=== PATIENT | female | born 1990 | race African-American/Black ===

== ENCOUNTER 2019-01-26 17:48 | Emergency (ER) | payer OTHER ==
[~2019-01-26] VITALS: Ht 165.1 cm; Wt 113.4 kg
[2019-01-26 17:54] VITALS: BP 160/94
--- NOTE | 2019-01-26 18:00 | PHYS DOC ---
Past Medical History Past Medical History: No Pertinent History Past Surgical History: Other Additional Past Surgical Histo: L LEG Alcohol Use: None Drug Use: None Adult General Chief Complaint Chief Complaint: BACK PAIN - NO INJURY [facility] HPI Patient is a 28 year old female who presents with Left lower back pain that radiates down back of left leg x 1 week. Ambulatory with steady gait. 8/10 pain. Review of Systems Review of Systems Constitutional: Denies fever or chills [] Eyes: Denies change in visual acuity, redness, or eye pain [] HENT: Denies nasal congestion or sore throat [] Respiratory: Denies cough or shortness of breath [] Cardiovascular: No additional information not addressed in HPI [] GI: Denies abdominal pain, nausea, vomiting, bloody stools or diarrhea [] : Denies dysuria or hematuria [] Musculoskeletal: left lower back pain that radiates down back of the leg. or joint pain [] Integument: Denies rash or skin lesions [] Neurologic: Denies headache, focal weakness or sensory changes [] Endocrine: Denies polyuria or polydipsia [] All other systems were reviewed and found to be within normal limits, except as documented in this note. Allergies Allergies Allergies Coded Allergies Type Severity Reaction Last Updated Verified No Known Drug Allergies 11/29/15 No Physical Exam Physical Exam Constitutional: Well developed, well nourished, no acute distress, non-toxic appearance. [] HENT: Normocephalic, atraumatic, bilateral external ears normal, oropharynx moist, no oral exudates, nose normal. [] Eyes: PERRLA, EOMI, conjunctiva normal, no discharge. [] Neck: Normal range of motion, no tenderness, supple, no stridor. [] Cardiovascular:Heart rate regular rhythm, no murmur [] Lungs & Thorax: Bilateral breath sounds clear to auscultation [] Abdomen: Bowel sounds normal, soft, no tenderness, no masses, no pulsatile masses. [] Skin: Warm, dry, no erythema, no rash. [] Back: No tenderness, no CVA tenderness. [] Extremities: No tenderness, no cyanosis, no clubbing, ROM intact, no edema. [] Neurologic: Alert and oriented X 3, normal motor function, normal sensory function, no focal deficits noted. [] Psychologic: Affect normal, judgement normal, mood normal. Normal Physical Exam[] EKG EKG [] Radiology/Procedures Radiology/Procedures [] Course & Med Decision Making Course & Med Decision Making Patient is a 28 year old female who presents with Left lower back pain that radiates down back of left leg x 1 week. Ambulatory with steady gait. 8/10 pain. Alert and oriented. no extremity swelling. Denies numbness or tingling. Pedal pulses present. Patient states she does a lot of lifting and standing at her job for 12 hours at a time. No tenderness to the back or leg with palpation. No calf tenderness. Nothing make the pain better. Movement makes pain worse. Patient has been using Advil and Tylenol for pain. Patient is diagnosed with Sciatica. Patient to follow up with primary care physician as soon as possible. Dragon Disclaimer Dragon Disclaimer This electronic medical record was generated, in whole or in part, using a voice recognition dictation system. Departure Departure Impression: Primary Impression: Sciatica Disposition: HOME, SELF-CARE Condition: STABLE Referrals: NO PCP (PCP) Patient Instructions: Sciatica Additional Instructions: Take medication as prescribed. Follow up with primary care as soon as possible. Try a heating pad or Aspercreme with lidocaine. Continue taking Ibuprofen. Scripts Hydrocodone/Apap 5-325 (NORCO 5-325 TABLET) 1 Each Tablet 1 TAB PO PRN Q6HRS PRN for PAIN, #10 TAB 0 Refills Prov: DENAE ACUNA APRN 01/26/19 Methylprednisolone (MEDROL) 4 Mg Tab.ds.pk 1 PKG PO UD, #1 PKG Prov: DENAE ACUNA APRN 01/26/19 Problem Qualifiers Primary Impression: Sciatica Laterality: left Qualified Codes: M54.32 - Sciatica, left side DENAE ACUNA TALENT ACQUISITION DIRECTOR Jan 26, 2019 18:00
[2019-01-26] MEDS ORDERED: HYDR-3164 PO (18:10)
[2019-01-26] MEDS ORDERED: METH4TAB2 PO (18:10)
[2019-01-27] MEDS ORDERED: NAPR-514 PO (19:48)
[2019-01-27] MEDS ORDERED: CYCL10TA2 PO (19:48)
== END 2019-01-26 18:34 | disposition home or self-care (01) ==
LOC: ER 17:48
DX: M54.42 Lumbago with sciatica, left side (principal)
CPT/HCPCS: 99283

== ENCOUNTER 2019-08-26 18:37 | Emergency (ER) | payer SELFPAY ==
[~2019-08-26] VITALS: Ht 165.1 cm; Wt 100.0 kg
[~2019-08-26 18:37] MED LIST: CYCL10TA2 PO; HYDR-3164 PO; METH4TAB2 PO; NAPR-514 PO
--- NOTE | 2019-08-26 19:26 | PHYS DOC ---
Past Medical History Past Medical History: No Pertinent History Past Surgical History: Other Additional Past Surgical Histo: L LEG Alcohol Use: Occasionally Drug Use: None Adult General Chief Complaint Chief Complaint: FLU SYMPTOM HPI HPI Patient is a 28 year old female who presents with cough, diarrhea, fever, body aches that started last night. Patient states she's took cold and flu medication and Tylenol. Her last Tylenol was at 1900. Patient states she's only had 2 bouts of diarrhea. She denies any blood in the diarrhea. She denies any past medical history. Review of Systems Review of Systems Constitutional: fever or chills [] HENT: Denies nasal congestion. +sore throat [] Respiratory: cough or denies shortness of breath [] GI: Denies abdominal pain, nausea, vomiting, bloody stools. + diarrhea [] Musculoskeletal: Body aches. Denies back pain or joint pain [] All other systems were reviewed and found to be within normal limits, except as documented in this note. Current Medications Current Medications Current Medications Medications (Trade) Dose Ordered Sig/Omer Start Time Stop Time Status Last Admin Dose Admin Ibuprofen (Motrin) 600 mg 1X ONCE 08/26/19 19:30 08/26/19 19:31 DC 08/26/19 19:52 600 MG Sodium Chloride 1,000 ml @ 1,000 mls/hr 1X ONCE 08/26/19 19:30 08/26/19 20:29 DC 08/26/19 19:40 1,000 MLS/HR Allergies Allergies Allergies Coded Allergies Type Severity Reaction Last Updated Verified No Known Drug Allergies 11/29/15 No Physical Exam Physical Exam Constitutional: Well developed, well nourished, no acute distress, non-toxic appearance. [] HENT: Normocephalic, atraumatic, bilateral external ears normal, oropharynx moist, no oral exudates, nose normal. Throat reddened without swelling or exudates. [] Eyes: PERRLA, EOMI, conjunctiva normal, no discharge. [] Neck: Normal range of motion, no tenderness, supple, no stridor. [] Cardiovascular:Heart rate regular rhythm, no murmur [] Lungs & Thorax: Bilateral breath sounds clear to auscultation [] Abdomen: Bowel sounds normal, soft, no tenderness, no masses, no pulsatile masses. [] Skin: Warm, dry, no erythema, no rash. [] Back: No tenderness, no CVA tenderness. [] Extremities: No tenderness, no cyanosis, no clubbing, ROM intact, no edema. [] Neurologic: Alert and oriented X 3, normal motor function, normal sensory function, no focal deficits noted. [] Psychologic: Affect normal, judgement normal, mood normal. [] Current Patient Data Vital Signs Vital Signs Date Time Temp Pulse Resp B/P (MAP) Pulse Ox O2 Delivery O2 Flow Rate FiO2 08/26/19 19:08 99.8 131 24 144/86 (105) 97 Room Air 99.8 Lab Values Laboratory Tests Test 08/26/19 19:30 08/26/19 19:34 08/26/19 19:40 Urine Collection Type Void Urine Color Yellow Urine Clarity Cloudy Urine pH 5.5 Urine Specific [place] 1.020 Urine Protein Negative mg/dL (NEG-TRACE) Urine Glucose (UA) Negative mg/dL (NEG) Urine Ketones (Stick) 40 mg/dL (NEG) Urine Blood Negative (NEG) Urine Nitrite Negative (NEG) Urine Bilirubin Negative (NEG) Urine Urobilinogen Dipstick 1.0 mg/dL (0.2 mg/dL) Urine Leukocyte Esterase Negative (NEG) Urine RBC 1-2 /HPF (0-2) Urine WBC 1-4 /HPF (0-4) Urine Squamous Epithelial Cells Many /LPF Urine Bacteria Moderate /HPF (0-FEW) Urine Mucus Marked /LPF POC Urine HCG, Qualitative Hcg negative (Negative) White Blood Count 6.2 x10^3/uL (4.0-11.0) Red Blood Count 5.38 x10^6/uL (3.50-5.40) Hemoglobin 16.1 g/dL (12.0-15.5) H Hematocrit 48.2 % (36.0-47.0) H Mean Corpuscular Volume 90 fL (79-100) Mean Corpuscular Hemoglobin 30 pg (25-35) Mean Corpuscular Hemoglobin Concent 34 g/dL (31-37) Red Cell Distribution Width 14.7 % (11.5-14.5) H Platelet Count 184 x10^3/uL (140-400) Neutrophils (%) (Auto) 76 % (31-73) H Lymphocytes (%) (Auto) 11 % (24-48) L Monocytes (%) (Auto) 12 % (0-9) H Eosinophils (%) (Auto) 1 % (0-3) Basophils (%) (Auto) 1 % (0-3) Neutrophils # (Auto) 4.7 x10^3/uL (1.8-7.7) Lymphocytes # (Auto) 0.7 x10^3/uL (1.0-4.8) L Monocytes # (Auto) 0.7 x10^3/uL (0.0-1.1) Eosinophils # (Auto) 0.0 x10^3/uL (0.0-0.7) Basophils # (Auto) 0.0 x10^3/uL (0.0-0.2) Sodium Level 133 mmol/L (136-145) L Potassium Level 4.2 mmol/L (3.5-5.1) Chloride Level 97 mmol/L (98-107) L Carbon Dioxide Level 26 mmol/L (21-32) Anion Gap 10 (6-14) Blood Urea Nitrogen 7 mg/dL (7-20) Creatinine 0.9 mg/dL (0.6-1.0) Estimated GFR (Cockcroft-Gault) 90.2 BUN/Creatinine Ratio 8 (6-20) Glucose Level 124 mg/dL (70-99) H Calcium Level 9.6 mg/dL (8.5-10.1) Total Bilirubin 1.1 mg/dL (0.2-1.0) H Aspartate Amino Transferase (AST) 29 U/L (15-37) Alanine Aminotransferase (ALT) 18 U/L (14-59) Alkaline Phosphatase 46 U/L (46-116) Total Protein 8.7 g/dL (6.4-8.2) H Albumin 4.0 g/dL (3.4-5.0) Albumin/Globulin Ratio 0.9 (1.0-1.7) L Influenza Type A Antigen Positive (NEGATIVE) Influenza Type B Antigen Negative (NEGATIVE) Laboratory Tests 08/26/19 19:40 Laboratory Tests 08/26/19 19:40 EKG EKG Sinus Tachycardia and no STEMI[] Interpretation Time: [address] Dexter Radiology/Procedures Radiology/Procedures [] Course & Med Decision Making Course & Med Decision Making Alert and oriented. Ambulatory with a steady gait. Skin pink warm and dry. Patient is tachycardic. Lungs are clear to auscultation in all lobes. Patient denies coughing up any mucus. She denies any sinus congestion. Abdomen is soft and nontender. Throat is reddened but there is no swelling or exudates. Uvula midline. PERRLA. Bilateral tympanic white. Patient denies chest pain, shortness of air, abdominal pain, nausea, vomiting, back pain, dysuria symptoms, dizziness, headache, vision changes, numbness or tingling, weakness. Influenza A positive. After a liter of fluid is given patient's heart rate is coming down to 103. Xray read as no acute findings by Dr Dexter. Adela Disclaimer Adela Disclaimer This electronic medical record was generated, in whole or in part, using a voice recognition dictation system. Departure Departure Impression: Primary Impression: Influenza A Disposition: 01 HOME, SELF-CARE Condition: STABLE Referrals: NO PCP (PCP) Patient Instructions: Influenza A (H1N1) Additional Instructions: Drink plenty of fluids. Continue taking Tylenol and ibuprofen to help with fever and pain. Take medication with food. Follow up with a primary care provider. Scripts Benzonatate (TESSALON PERLE) 100 Mg Capsule 1 CAP PO TID, #30 CAP Prov: DENAE ACUNA PUTTYING AND CALKING SUPERVISOR 08/26/19 Oseltamivir Phosphate (TAMIFLU) 75 Mg Capsule 1 CAP PO BID for 5 Days, #10 CAP Prov: DENAE ACUNA APRN 08/26/19 DENAE ACUNA APRN Aug 26, 2019 19:26
[2019-08-26 19:30] VITALS: BP 125/79
[2019-08-26] MEDS ORDERED: IV NORMAL SALINE 1000ML BAG 1,000 ML IV ONE (19:30)
[2019-08-26] MEDS ORDERED: IBUPROFEN 200 MG TABLET. PO ONE (19:30)
[2019-08-26 19:40] LABS: BILIRUBIN,URINE NEGATIVE (NEG); CLARITY,URINE CLOUDY; COLOR,URINE YELLOW; NITRITE,URINE NEGATIVE (NEG); PH,URINE 5.5; PROTEIN,URINE NEGATIVE (NEG-TRACE)
[2019-08-26 19:56] LABS: BASO % 1 % (0-3); EOS % 1 % (0-3); HEMATOCRIT 48.2 % (36.0-47.0); HEMOGLOBIN 16.1 g/dL (12.0-15.5); LYMPH # 0.7 x10^3/uL (1.0-4.8); LYMPH % 11 % (24-48); MEAN CORPUSCULAR HEMOGLOBIN 30 pg (25-35); MEAN CORPUSCULAR HGB CONC 34 g/dL (31-37); MEAN CORPUSCULAR VOLUME 90 fL (79-100); MONO # 0.7 x10^3/uL (0.0-1.1); MONO % 12 % (0-9); NEUT # 4.7 x10^3/uL (1.8-7.7); NEUT % 76 % (31-73); PLATELET COUNT 184 x10^3/uL (140-400); RED BLOOD COUNT 5.38 x10^6/uL (3.50-5.40); RED CELL DISTRIBUTION WIDTH 14.7 % (11.5-14.5); WHITE BLOOD COUNT 6.2 x10^3/uL (4.0-11.0)
[2019-08-26 19:56] LABS: BACTERIA,URINE MODERATE /HPF (0-FEW); SQUAMOUS EPITHELIAL CELL,UR MANY /LPF
[2019-08-26 20:04] LABS: CALCIUM 9.6 mg/dL (8.5-10.1); CREATININE 0.9 mg/dL (0.6-1.0); GFR 90.2; POTASSIUM 4.2 mmol/L (3.5-5.1)
[2019-08-26 20:10] LABS: ALBUMIN/GLOBULIN RATIO 0.9 (1.0-1.7); TOTAL BILIRUBIN 1.1 mg/dL (0.2-1.0); TOTAL PROTEIN 8.7 g/dL (6.4-8.2)
[2019-08-26 20:13] LABS: INFLUENZA B PATIENT NEGATIVE (NEGATIVE)
[2019-08-26 20:14] LABS: INFLUENZA A PATIENT POSITIVE (NEGATIVE)
--- NOTE | 2019-08-26 20:19 | EKG ---
[facility] [address] [place] [address] Test Date: 2019-08-26 Test Time: 19:42:22 Pat Name: MELVIN BARBOZA Department: Room: Gender: F Roll Former: : 1990 Requested By: DENAE ACUNA Order Number: [id number] Reading MD: Measurements Intervals [place] Rate: 102 P: 52 NV: 128 QRS: 52 QRSD: 76 T: 31 QT: 316 QTc: 415 Interpretive Statements SINUS TACHYCARDIA LEFT ATRIAL ABNORMALITY NON SPECIFIC ST-T ABNORMALITY (ELEVATION) ABNORMAL ECG No previous ECG available for comparison
[2019-08-26] MEDS ORDERED: OSEL75CA PO (20:29)
[2019-08-26] MEDS ORDERED: BENZ100C PO (20:29)
--- NOTE | 2019-08-26 21:01 | RAD ---
EXAM: PA and Lateral Views of the Chest DATE: 08/26/2019 7:21 PM INDICATION: Fever, tachycardia COMPARISON: No Prior FINDINGS: Heart is mildly enlarged. The morphology of the heart raises concern for possible associated pericardial effusion. Patchy bilateral perihilar and lung base airspace opacities are seen. No pleural effusion. No pneumothorax. No pleural effusion or pneumothorax. IMPRESSION: 1. Mild enlargement of the cardiac silhouette which although may be physiologic for this patient, associated pericardial effusion is a consideration and can be further assessed with ultrasound/echocardiogram. 2. Bilateral perihilar airspace opacities, nonspecific may be seen with infectious/inflammatory process. Electronically signed by: Jonathon Hameed MD (08/26/2019 8:58 PM) [id number]
== END 2019-08-26 20:35 | disposition home or self-care (01) ==
LOC: ER 18:37
DX: J10.1 Influenza due to other identified influenza virus with other respiratory manifestations (principal); R19.7 Diarrhea, unspecified; R05 Cough; R52 Pain, unspecified
CPT/HCPCS: 36415; 71046; 80053; 81001; 81025; 85025; 87086; 87804; 93005; 96360; 99285; J7030